=== PATIENT | male | born 1995 | race American Indian/Alaskan Native ===

== ENCOUNTER 2020-01-08 17:18 | Emergency (ER) | payer SELFPAY ==
[2020-01-08 18:09] VITALS: BP 133/89
--- NOTE | 2020-01-08 18:16 | Emergency Department Report ---
Chief Complaint: Laceration/Recheck/Suture Stated Complaint: SUTURE REM - HPI History of Present Illness: Patient presents to the emergency room for suture removal that was placed in [place] 2 weeks ago. Sutures are located in the scalp. - Exam Vital Signs: Vital Signs 01/08/20 18:07 Temperature 97.6 F Pulse Rate 83 Respiratory 20 Rate Blood Pressure 133/89 O2 Sat by Pulse 96 Oximetry Physical Exam: Alert and oriented x3 no acute distress nontoxic in appearance Scalp sutures are in place not erythematous no drainage nontender to touch. MSE screening note: Focused history and physical exam performed. Due to findings the following was ordered: Patient presents to the emergency room for suture removal that was placed in [place] 2 weeks ago. Sutures are located in the scalp. Patient decide to follow-up at her urgent care. ED Disposition for MSE Disposition: MED SCREENING EXAM-LEFT Is pt being admited?: No Does the pt Need Aspirin: No Condition: Stable
== END 2020-01-08 18:10 | disposition left against medical advice (07) ==
LOC: ED 17:18
DX: T14.8XXD Other injury of unspecified body region, subsequent encounter (principal); Z53.21 Procedure and treatment not carried out due to patient leaving prior to being seen by health care provider